=== PATIENT | male | born 1975 | race Caucasian/White ===

== ENCOUNTER 2025-03-29 17:48 | Emergency (ER) | payer OTHER ==
[~2025-03-29] VITALS: Ht 177.8 cm; Wt 97.5 kg
[2025-03-29 18:49] VITALS: BP 138/98
[2025-03-29] MEDS ORDERED: IBUP600 PO (22:22)
[2025-03-29] MEDS ORDERED: ACET500 PO (22:22)
== END 2025-03-29 22:35 | disposition home or self-care (01) ==
LOC: ER 17:48
DX: M25.522 Pain in left elbow (principal); M25.512 Pain in left shoulder
CPT/HCPCS: 73030; 73080; 99283-25

== ENCOUNTER 2025-04-18 10:57 | Day surgery (SDC) | payer OTHER ==
[~2025-04-18] VITALS: Ht 177.8 cm; Wt 96.4 kg
[2025-04-18] VITALS (10 sets, daily range): BP systolic 116–130; BP diastolic 76–93
[~2025-04-18 10:57] MED LIST: ACET500 PO; IBUP600 PO
[2025-04-18] MEDS ORDERED: IBUP800 PO (11:13)
[2025-04-18] MEDS ORDERED: CeFAZolin Sodium 2,000 MG in NS 100 ML IV SCH (11:20)
--- NOTE | 2025-04-18 11:50 | NUR ---
Ambulatory in Day Surgery, accompanied by his father Keanu. History, Chart, Medications and Allergies reviewed before start of procedure. Patient confirms NPO status and agrees with scheduled surgery. Pre-Op teaching done. Pt verbalizes understanding. Patient States Post-Procedure ride home has been arranged. Pt belongings placed underneath [facility] for safekeeping.
[2025-04-18] MEDS ORDERED: FentaNYL Citrate 50 MCG/ML 2 ML Injection ONE ×2 (13:24→15:35)
[2025-04-18] MEDS ORDERED: Dexamethasone Sod Phos 10 MG/ML 1ML VIAL ONE (13:25)
[2025-04-18] MEDS ORDERED: Ketorolac Tromethamine 30mg Vial ONE (13:25)
[2025-04-18] MEDS ORDERED: Ondansetron HCl 2 MG / ML 2ML Vial ONE (13:25)
[2025-04-18] MEDS ORDERED: SuccINYLCHOLINE Chloride 100 MG/5 ML 5MLSYR ONE (13:28)
[2025-04-18] MEDS ORDERED: Rocuronium Bromide 10 MG/ML 5ML Injection IV ONE (13:28)
[2025-04-18] MEDS ORDERED: Phenylephrine HCl 100 MCG/ML-NS 10MLSYR (1MG/10ML) ONE (14:02)
[2025-04-18] MEDS ORDERED: Bupivacaine 0.5% W/EPI 1:200000 SDV 30 ML Vial ONE (14:05)
[2025-04-18] MEDS ORDERED: Tranexamic Acid 100 ML IV ONE (14:05)
[2025-04-18] MEDS ORDERED: HYDROmorphone HCl/Pf 1MG SYR IV PRN ×2 (14:15)
[2025-04-18] MEDS ORDERED: FentaNYL Citrate 50 MCG/ML 2 ML Injection IV PRN ×2 (14:15)
[2025-04-18] MEDS ORDERED: Ondansetron HCl 2 MG / ML 2ML Vial IV PRN (14:15)
[2025-04-18] MEDS ORDERED: Sugammadex Sodium 200 MG/2ML SDV (100 MG/ML) ONE (15:03)
--- NOTE | 2025-04-18 16:58 | NUR ---
Patient up to Ambulate independently. Gait steady. Discharge instructions reviewed with patient. Patient verbalizes understanding. Copy given to patient to take home. Discharged via wheelchair to private car for ride home.
== END 2025-04-18 16:55 | disposition home or self-care (01) ==
LOC: ORSCMMR 10:57 → ORD 12:30 → ORSCMMR 16:55
PROVIDERS: Orthopaedic Surgery
PROC: 0LQ40ZZ Repair Left Upper Arm Tendon, Open Approach (ICD-10-PCS; principal; 2025-04-18 12:30)
DX: S46.322A Laceration of muscle, fascia and tendon of triceps, left arm, initial encounter (principal); W01.0XXA Fall on same level from slipping, tripping and stumbling without subsequent striking against object, initial encounter; Z87.891 Personal history of nicotine dependence
CPT/HCPCS: A9270; C1713; J0330; J0690; J1100; J1885; J2371; J2405; J2704; J3010; J7120